=== PATIENT | female | born 1990 | race American Indian/Alaskan Native ===

== ENCOUNTER 2017-10-13 02:53 | Emergency (ER) | payer SELFPAY ==
[2017-10-13] MEDS ORDERED: ASPIRIN PO ONE (03:17)
[2017-10-13 03:34] LABS: Basophils % (Auto) 0.6 % (0.0-1.8); Eosinophils # (Auto) 0.1 K/mm3 (0.0-0.4); Hematocrit 38.4 % (30.3-42.9); Hemoglobin 12.6 gm/dl (10.1-14.3); Lymphocytes # (Auto) 2.3 K/mm3 (1.2-5.4); Lymphocytes % (Auto) 36.7 % (13.4-35.0); Mean Corpuscular HGB Conc 33 % (30-34); Mean Corpuscular Hemoglobin 29 pg (28-32); Mean Corpuscular Volume 88 fl (79-97); Monocytes # (Auto) 0.7 K/mm3 (0.0-0.8); Monocytes % (Auto) 12.2 % (0.0-7.3); Platelet Count 210 K/mm3 (140-440); Red Blood Count 4.34 M/mm3 (3.65-5.03); Red Cell Distribution Width 14.9 % (13.2-15.2)
[2017-10-13 03:56] LABS: BUN/Creatinine Ratio 16; Blood Urea Nitrogen 11 mg/dL (7-17); Calcium 8.8 mg/dL (8.4-10.2); Hemolysis Index 5
--- NOTE | 2017-10-13 04:36 | XRay Report ---
FINAL REPORT EXAM: XR CHEST ROUTINE 2V HISTORY: NESSA TECHNIQUE: PA and lateral chest radiographs PRIORS: None. FINDINGS: No mediastinal shift. Cardiac silhouette is not enlarged. No pneumothorax, effusion, or focal pulmonary opacity. No acute skeletal finding. Right nipple jewelry is noted. IMPRESSION: No focal pulmonary opacity.
[2017-10-13] MEDS ORDERED: NACL 0.9% 500 ML 500 ML IV ONE (07:02)
[2017-10-13] MEDS ORDERED: MORPHINE IV ONE (07:02)
--- NOTE | 2017-10-13 07:14 | Emergency Department Report ---
ED Chest Pain HPI - General Chief Complaint: Chest Pain Stated Complaint: CP;SOB Time Seen by Provider: 10/13/17 06:41 Source: patient Mode of arrival: Ambulatory Limitations: No Limitations - History of Present Illness Initial Comments: 26-year-old female presents to the emergency department from home by EMS with complaint of some right upper chest pain and some shortness of breath that started yesterday. She tried some ibuprofen for symptoms without much relief. The patient has a history of having a right sided collapsed along 3 weeks ago and got a chest tube at [facility]. She is a former smoker and denies any illicit drug use or alcohol abuse. She does not have a primary care physician. No recent travel. She denies any nausea, vomiting, fever, diaphoresis. The patient says that she is currently on her cycle. - Related Data Previous Rx's Medication Instructions Recorded Last Taken Type HYDROcodone/APAP 5-325 [Stanley 1 each PO Q6HR PRN #10 tablet 10/13/17 Unknown Rx 5/325] Allergies Allergy/AdvReac Type Severity Reaction Status Date / Time aspirin Allergy Hives Verified 10/13/17 09:04 Heart Score - HEART Score History: Slightly suspicious EKG: Normal Age: < 45 Risk factors: No known risk factors Troponin: < normal limit HEART Score: 0 - Critical Actions Critical Actions: 0-3 pts:0.9-1.7%risk of adverse cardiac event.Candidate for discharge ED Review of Systems ROS: Stated complaint: CP;SOB Other details as noted in HPI Comment: All other systems reviewed and negative Constitutional: denies: chills, fever Eyes: denies: eye pain, eye discharge, vision change ENT: denies: ear pain, throat pain Respiratory: shortness of breath. denies: cough Cardiovascular: chest pain. denies: palpitations Gastrointestinal: denies: abdominal pain, nausea, diarrhea Genitourinary: denies: urgency, dysuria, discharge Musculoskeletal: denies: back pain, joint swelling, arthralgia Skin: denies: rash, lesions Neurological: denies: headache, weakness, paresthesias ED Past Medical Hx - Past Medical History Previous Medical History?: Yes Additional medical history: emphysema - Surgical History Past Surgical History?: Yes Additional Surgical History: chest tube - Social History Smoking Status: Former Smoker Substance Use Type: Alcohol - Medications Home Medications: Home Medications Medication Instructions Recorded Confirmed Last Taken Type HYDROcodone/APAP 5-325 [Stanley 1 each PO Q6HR PRN #10 tablet 10/13/17 Unknown Rx 5/325] ED Physical Exam - General Limitations: No Limitations - Other Other exam information: GENERAL: The patient is well-developed well-nourished. HENT: Normocephalic. Atraumatic. Patient has moist mucous membranes. EYES: Extraocular motions are intact. Pupils equal reactive to light bilaterally. NECK: Supple. Trachea is midline. CHEST/LUNGS: Clear to auscultation. There is no respiratory distress noted. HEART/CARDIOVASCULAR: Regular. There is no tachycardia. There is no murmur. ABDOMEN: Abdomen is soft, nontender. Patient has normal bowel sounds. There is no abdominal distention. SKIN: Skin is warm and dry. NEURO: The patient is awake, alert, and oriented. The patient is cooperative. The patient has no focal neurologic deficits. The patient has normal speech and gait. MUSCULOSKELETAL: There is no tenderness or deformity. There is no limitation range of motion. There is no evidence of acute injury. ED Course Vital Signs 10/13/17 10/13/17 10/13/17 03:09 07:56 08:15 Temperature 98.3 F Pulse Rate 68 84 Respiratory 18 15 Rate Blood Pressure 112/67 112/70 O2 Sat by Pulse 100 100 100 Oximetry 10/13/17 10/13/17 10/13/17 08:45 08:50 09:00 Temperature Pulse Rate 90 65 Respiratory 13 18 14 Rate Blood Pressure 107/70 118/56 O2 Sat by Pulse 99 100 Oximetry 10/13/17 09:16 Temperature Pulse Rate 67 Respiratory 11 L Rate Blood Pressure 118/56 O2 Sat by Pulse 100 Oximetry ROMIE score - Romie Score Age > 65: (0) No Aspirin use within the Past 7 Days: (0) No 3 or more CAD Risk Factors: (0) No 2 or more Angina events in past 24 hrs: (0) No Known CAD with more than 50% Stenosis: (0) No Elevated Cardiac Markers: (0) No ST Deviation Greater than 0.5mm: (0) No ROMIE Score: 0 ED Medical Decision Making - Lab Data Result diagrams: 10/13/17 03:24 10/13/17 03:24 - EKG Data -: EKG Interpreted by [facility] EKG shows normal: sinus rhythm, axis, intervals, QRS complexes (q wave to anterior leads), ST-T waves Rate: normal - EKG Data When compared to previous EKG there are: previous EKG unavailable Interpretation: other (sinus rhythm, normal axis, normal intervals, Q waves to the anterior leads) - Radiology Data Radiology results: report reviewed, image reviewed interpreted by me: Chest x-ray does not show any acute process. There are no pleural effusions, obvious pneumonia and there is no pneumothorax. CTA chest: Chest pain, elevated d-dimer. Transverse images are obtained through the chest during IV contrast administration using pulmonary embolus protocol. Coronal and sagittal 2-D reformatted images as well as 3-mip image included. There is good opacification of the pulmonary arteries, veins, cardiac chambers, and thoracic aorta. There are no filling defects in the pulmonary or cardiac circulation. The thoracic aorta is normal in size and contour. The central airways are patent. No adenopathy noted. No pulmonary nodules, infiltrates, nor pleural changes present. Impression: Normal examination. No evidence of pulmonary embolus. Transcribed By: AURELIANO Dictated By: LOLI JACINTO MD Electronically Authenticated By: LOLI JACINTO MD Signed Date/Time: 10/13/17 8867 - Medical Decision Making Patient presents with some right upper chest pain. She has a history of pneumothorax with chest tube placed about 3 weeks ago at [facility]. Her EKG is normal without ST elevation CO, ischemia or dysrhythmia. Labs been unremarkable as well including no signs of infection, electrolyte abnormalities and she has negative troponins 2. She did have a slightly elevated and equivocal d-dimer of about [address] angiography of the chest was done that did not show any pulmonary and was him, dissection or any other acute process. I believe her pain is most likely secondary to her recent pneumothorax and chest tube. However she appears safe for discharge home at this time. She has low on the heart score criteria and has a ROMIE score of 0. She does not have any significant risk factors for coronary artery disease. 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 She has been encouraged to return to the emergency Department with any worsening of her symptoms or any acute distress. - Differential Diagnosis costochondritis, pleurisy, CO, PE, pneumonia Critical Care Time: No Critical care attestation.: If time is entered above; I have spent that time in minutes in the direct care of this critically ill patient, excluding procedure time. ED Disposition Clinical Impression: Right-sided chest pain Disposition: TO HOME OR SELFCARE Is pt being admited?: No Condition: Stable Instructions: Chest Pain (ED) Additional Instructions: Please follow up with the surgeon or full stack developer or whoever you were encouraged to see after being discharged from [place]. Return to the emergency Department with any worsening of your symptoms or any acute distress. You have been prescribed a medication that is sedating and therefore should not be taken prior to driving, working, and responsible for children and in no way should be mixed with alcohol of any quantity. Prescriptions: HYDROcodone/APAP 5-325 [Stanley 5/325] 1 each PO Q6HR PRN #10 tablet PRN Reason: Pain Referrals: PRIMARY CARE, [Primary Care Provider] - MAX Time of Disposition: 10:25
[2017-10-13] MEDS ORDERED: NACL ONE (08:40)
--- NOTE | 2017-10-13 10:04 | Cat Scan Report ---
CTA chest: Chest pain, elevated d-dimer. Transverse images are obtained through the chest during IV contrast administration using pulmonary embolus protocol. Coronal and sagittal 2-D reformatted images as well as 3-mip image included. There is good opacification of the pulmonary arteries, veins, cardiac chambers, and thoracic aorta. There are no filling defects in the pulmonary or cardiac circulation. The thoracic aorta is normal in size and contour. The central airways are patent. No adenopathy noted. No pulmonary nodules, infiltrates, nor pleural changes present. Impression: Normal examination. No evidence of pulmonary embolus.
[2017-10-13 10:49] VITALS: BP 114/73
== END 2017-10-13 11:13 | disposition home or self-care (01) ==
LOC: ED 02:53
DX: R07.89 Other chest pain (principal); J43.9 Emphysema, unspecified; Z87.891 Personal history of nicotine dependence
CPT/HCPCS: 36415; 71046; 71275; 80048; 84484; 84703; 85025; 85379; 93005; 93010; 96374; 99284; J2270; J7040; Q9967